=== PATIENT | male | born 1955 | race Caucasian/White ===

== ENCOUNTER → 2018-02-21 07:33 | Outpatient (CLI) | payer MEDICARE ==
[~2018-02-21] VITALS: Ht 170.2 cm; Wt 77.3 kg
--- NOTE | ~2018-02-21 | OP ---
PATIENT NAME: LAKSHMI BONILLA MEDICAL RECORD: [id number] :55 LOCATION:D.CAT ADMISSION DATE: SURGEON: JOSY LANDIS MD DATE OF OPERATION: 02/21/2018 PROCEDURES: 1. PTCA stent RCA. 2. Intravascular ultrasound. 3. Left heart catheterization. 4. Selective coronary angiography. 5. Left ventriculogram. INDICATION: Angina and coronary artery disease. PROCEDURE IN DETAIL: After informed consent was obtained and after a detailed description of risks, benefits as well as alternative therapies, the patient elected to proceed with angiogram and angioplasty. The right femoral area was prepped and draped in normal sterile fashion. The right femoral artery was cannulated via modified Seldinger technique with placement of 6-Georgian sheath. All catheters exchanged through this sheath. FINDINGS: The left ventriculogram was performed in standard 30-degree MCKENZIE view reveals preserved cardiac wall motion, ejection fraction is 60%. SELECTIVE CORONARY ANGIOGRAPHY: 1. Left main is with no significant angiographic disease. 2. Left anterior descending has a long area of greater than 70% stenosis proximally. 3. The left circumflex has moderate irregularities, but no flow-limiting stenosis. 4. The right coronary artery has multiple previously placed stents followed by a 75% stenosis distally. Intravascular ultrasound revealed there is no significant in-stent restenosis throughout the stented area. PTCA STENT OF THE RCA: The stent used was a 2.5 x 14 mm Integrity. Result was 0% residual stenosis. OVERALL IMPRESSION: Successful PTCA stent of the RCA going from 75% initial stenosis to 0% residual. PLAN: For STAMPING DIE MAKER BENCH stent of the LAD in the near future. TRANSINT:[id number] Voice Confirmation ID: [id number] DOCUMENT ID: [id number] JOSY LANDIS MD at 1710 CC: [id number] DICTATION DATE: 02/21/18 0944 BARNWORKER GROOM: 02/21/18 1039 DEP CLI 02/21/18 [id number] [place] [address]
--- NOTE | ~2018-02-21 | HEMODYNAMI ---
PATIENT:LAKSHMI BONILLA MEDICAL RECORD: [id number] : 55 LOCATION:[facility] ADMISSION DATE: 02/21/18 Generatedon:02/21/20189:47 Patient name: LAKSHMI BONILLA Patient #: [id number] SSN: : 1955 Date of study: 02/21/2018 Page: Of Hemodynamic Procedure Report Patient Data Patient Demographics Procedure consent was obtained First Name: LAKSHMI Gender: Male Last Name: CHAD : 1955 Patient #: [id number] Age: 62 year(s) Race: Unknown Additional ID: [id number] Contact details Address: [address] [place] [address] State: [place] City: [place] Zip code: [address] Past Medical History Allergies Allergen Reaction Date Comments Reported Other 02/21/2018 Plavix,Tape,Codeine,sulfa allergy Admission Admission Data Admission Date: 02/21/2018 Admission Time: 7:33 Lab Results Lab Result Date: 02/21/2018 Lab Result Time: 7:35 Biochemistry Name Units Result Min Max BUN mg/dl 19 --(----)*- 7 18 Creatinine mg/dl 1.2 --(---*)-- 0.6 1.3 CBC Name Units Result Min Max Hematocrit % 41.6 -*(----)-- 42 54 Hemoglobin g/dl 14.5 --(*---)-- 13.5 17.5 Procedure Procedure Types Cath Procedure Diagnostic Procedure LHC LHC w/Coronaries FFR/IVUS Intra-Coronary IVUS Initial PCI Procedure Coronary Stent Coronary Stent Initial Procedure Description Procedure Date Procedure Date: 02/21/2018 Procedure Start Time: 9:26 Procedure End Time: 9:45 Procedure Staff Name Function Art Adams MD Performing Physician Keagan Krause RT Monitor Monse Carroll RT Scrub Jer Bai RN Nurse Procedure Data Cath Procedure Fluoroscopy Diagnostic fluoroscopy Total fluoroscopy Time: 4.1 time: 4.1 min min Diagnostic fluoroscopy Total fluoroscopy dose: 587 dose: 587 mGy mGy Contrast Material Contrast Material Type Amount (ml) Isovue 370 60 Entry Location Entry Primary Successful Side Size Upsize Upsize Entry Closure Succes sful Closure Location (Fr) 1 (Fr) 2 (Fr) Remarks Device Remarks Femoral Right 5 Fr 6 Fr Exoseal artery Short Estimated blood loss: 10 ml Diagnostic catheters Device Type Used For End Catheter Placement MULTIPACK Pigtail 5 Fr Procedure catheter MULTIPACK JL 4.0 5Fr Procedure catheter MULTIPACK 3DRC 5Fr Procedure catheter DIAGNOSTIC 3DRC 5Fr Procedure catheter ([id number]) Procedure Complications No complications Procedure Medications Medication Administration Route Dosage Oxygen etCO2 Nasal cannula 2 l/min Heparin Flush Bag added to field 2 bags (1000units/500ml NS) 0.9% NaCl I.V. 100 ml/hr Fentanyl I.V. 50 mcg Versed I.V. 1 mg Fentanyl I.V. 50 mcg Versed I.V. 1 mg Heparin Bolus I.V. 4000 units Integrilin (Bolus I.V. 6.8 ml 2mg/ml) Integrilin (Bolus wasted 3.2 ml 2mg/ml) Effient P.O. 60 mg Hemodynamics Rest HGB: 14.5 (g/dl) Heart Rate: 56 (bpm) Snapshots Pre Cath Intra NCS Post Cath Vital Signs Time Heart Resp SPO2 etCO2 NIBP (mmHg) Rhythm Pain Sedation Rate (ipm) (%) (mmHg) Status Level (bpm) 8:51:59 60 17 95 0 123/75(92) NSR 0 (11) 10(A) , No pain 8:56:39 60 17 93 29.9 123/75(95) NSR 0 (11) 10(A) , No pain 9:01:20 62 16 91 37.5 124/71(94) NSR 0 (11) 10(A) , No pain 9:06:01 61 16 96 35.2 119/75(101) NSR 0 (11) 10(A) , No pain 9:10:41 61 16 98 35.2 120/64(94) NSR 0 (11) 10(A) , No pain 9:15:20 61 17 98 35.9 118/71(90) NSR 0 (11) 10(A) , No pain 9:19:58 61 16 98 34.5 125/72(87) NSR 0 (11) 10(A) , No pain 9:24:39 60 17 98 33 121/71(91) NSR 0 (11) 10(A) , No pain 9:29:18 62 16 95 32.9 118/71(92) NSR 0 (11) 9(A) , No pain 9:33:56 67 17 96 40.4 128/73(107) NSR 0 (11) 9(A) , No pain 9:38:39 65 16 96 0 130/67(101) NSR 0 (11) 9(A) , No pain 9:40:46 67 17 96 0 134/74(100) NSR 0 (11) 10(A) , No pain 9:45:26 66 9 96 12.7 116/75(103) NSR 0 (11) 10(A) , No pain Medications Time Medication Route Dose Verified Delivered Reason Notes Effectiveness by by 8:54:09 Oxygen etCO2 2 Art Randle Per physician Nasal l/min Angie Bai RN cannula 8:54:26 Heparin Flush added 2 Art Randle used for Bag to bags Angie Bai RN procedure (1000units/500ml field NS) 8:54:35 0.9% NaCl I.V. 100 Art Randle Per physician ml/hr Angie Bai RN 9:27:37 Fentanyl I.V. 50 Art Greenwoody for sedation mcg Angie Bai RN 9:27:43 Versed I.V. 1 mg Art Randle for sedation Angie Bai RN 9:33:26 Fentanyl I.V. 50 Art Randle for sedation mcg Angie Bai RN 9:33:32 Versed I.V. 1 mg Art Randle for sedation Angie Bai RN 9:33:40 Heparin Bolus I.V. 4000 Art Randle for units Angie Bai RN anticoagulation 9:33:50 Integrilin I.V. 6.8 Art Randle for (Bolus 2mg/ml) ml Angie Bai RN antiplatelet therapy 9:33:58 Integrilin wasted 3.2 Art Randle for (Bolus 2mg/ml) ml Angie Bai RN antiplatelet therapy 9:39:56 Effient P.O. 60 mg Art Bai RN antiplatelet therapy Procedure Log Time Note 8:35:41 Jer Bai RN sent for patient. Start room use. 8:47:06 Patient received from Pre/Post Procedure Room to CCL 1 Alert and oriented. Tansferred to table in Supine position. 8:47:08 Warm blankets applied, and lizette hugger turned on for patient comfort. 8:47:08 Correct patient and procedure confirmed by team. 8:47:09 Signed procedure consent form obtained from patient. 8:47:11 ECG and BP/O2 sat monitors applied to patient. 8:51:06 Vital chart was started 8:54:09 Oxygen 2 l/min etCO2 Nasal cannula was administered by Jer Bai RN; Per physician; 8:54:26 Heparin Flush Bag (1000units/500ml NS) 2 bags added to field was administered by Jer Bai RN; used for procedure; 8:54:35 0.9% NaCl 100 ml/hr I.V. was administered by Jer Bai RN; Per physician; 8:57:08 Baseline sample Acquired. 8:57:12 Rhythm: sinus rhythm 8:58:48 Full Disclosure recording started 8:59:01 H&P Date Dictated: 02/05/2018 Within 30 days and on chart., H&P Addendum completed by physician on day of procedure. (MUST COMPLETE FOR ALL OUTPATIENTS). 8:59:02 Pre-procedure instructions explained to patient. 8:59:02 Pre-op teaching completed and patient verbalized understanding. 8:59:05 Family in waiting room. 8:59:06 Patient NPO since Midnight. 8:59:26 Patient allergic to Other allergyPlavix,Tape,Codeine,sulfa 8:59:28 Is the patient allergic to Iodine/contrast media? No. 8:59:29 Is patient on blood thinner?No 8:59:30 Patient diabetic? No. 8:59:33 Previous problem with sedation/anesthesia? No ? 8:59:33 Snore? Yes 8:59:34 Sleep apnea? No 8:59:35 Deviated septum? No 8:59:36 Opens mouth fully? Yes 8:59:37 Sticks out tongue? Yes 8:59:38 Airway obstruction? No ? 8:59:40 Dentures? Yes out 8:59:46 Pre procedure: right dorsailis pedis pulse 2+ Normal; easily identifiable; not easily obliterated 8:59:48 Patient pain scale 0/10 ?. 8:59:56 IV patent on arrival in left forearm with 0.9% NaCl at [facility]. 9:01:13 Lab Result : BUN 19 mg/dl 9::13 Lab Result : Hemoglobin 14.5 g/dl 9::13 Lab Result : Creatinine 1.2 mg/dl 9::13 Lab Result : Hematocrit 41.6 % 9::15 Lab results completed and on chart. 9:01:18 Right groin area was prepped with chlora-prep and draped in sterile fashion 9::24 Alarms reviewed by R. N. 9::24 Sharps counted by scrub and verified by R.N. 9:01:33 Use device set Femoral Dx 9:01:34 ACIST Syringe (26756) opened to sterile field. 9:01:35 Bag Decanter (2002S) opened to sterile field. 9:01:36 Medline Cath Pack ([id number]) opened to sterile field. 9:01:46 ACIST Hand Control (34422) opened to sterile field. 9:01:46 ACIST Manifold (51834) opened to sterile field. 9:01:47 Tegaderm 4 x 4 (1626W) opened to sterile field. 9:01:51 DIAGNOSTIC WIRE .035 260cm J wire (571715) opened to sterile field. 9:01:52 DIAGNOSTIC Multipack 5Fr catheter set (WC5039) opened to sterile field. 9:01:53 SHEATH Prelude 5Fr 0.035 (WDK-4M-18-035) opened to sterile field. 9:13:05 Zero performed for pressure channel P1 9:24:43 Physician arrived 9:24:44 --------ALL STOP TIME OUT------ 9:24:45 Final Timeout: patient, procedure, and site verified with staff and physician. All members of the team are in agreement. 9:24:48 Right groin site verified by team. 9:24:51 Physical assessment completed. ASA score P 2 - A patient with mild systemic disease as per Art Adams MD. 9:24:54 Sedation plan: IV Moderate Sedation Medication:Versed, Fentanyl 9:26:22 Procedure started. 9::26 Local anesthetic to right femoral artery with Lidocaine 2% by Art Adams MD.INITIAL ACCESS ONLY 9:26:35 A 5 Fr sheath was inserted into the Right Femoral artery 9:27:37 Fentanyl 50 mcg I.V. was administered by Jer Bai RN; for sedation; 9:27:43 Versed 1 mg I.V. was administered by Jer Bai RN; for sedation; 9:28:04 A MULTIPACK Pigtail 5 Fr catheter was advanced over the wire and used for Procedure. 9:28:44 LV gram done using MCKENZIE 9::47 Injector settings: Ml/sec: 10, Volume: 20, 9:28:52 EF : 60 % 9:28:54 Catheter exchanged over wire. 9:29:02 A MULTIPACK JL 4.0 5Fr catheter was advanced over the wire and used for Procedure. 9:30:01 CHOICE PT Extra Support 182cm wire ([id number]) opened to sterile field. 9:30:02 INFLATOR Merit BasixCompak (UM6501) opened to sterile field. 9:30:02 SHEATH Prelude 6Fr 0.035 (ITR-1N-56-035) opened to sterile field. 9:30:16 LCA angiography performed. 9:30:18 Catheter exchanged over wire. 9:30:25 A MULTIPACK 3DRC 5Fr catheter was advanced over the wire and used for Procedure. 9:30:32 Catheter removed. damaged. 9:30:42 A DIAGNOSTIC 3DRC 5Fr catheter ([id number]) was advanced over the wire and used for Procedure. 9:30:48 RCA angiography performed. 9:31:39 Catheter removed. 9:31:45 Sheath upsized to a 6 Fr Short. 9:32:07 GUIDE 6FR AR 2.0 catheter ([id number]) opened to sterile field. 9:32:14 6 Fr ar 2 guide catheter was inserted over the wire 9:32:40 [place] Bois Forte Eagleye IVUS Catheter (33630K) opened to sterile field. 9:33:07 choice pt es wire advanced. 9:33:26 Fentanyl 50 mcg I.V. was administered by Jer Bai RN; for sedation; 9:33:31 IVUS catheter advanced over wire. 9:33:32 Versed 1 mg I.V. was administered by Jer Bai RN; for sedation; 9:33:34 IVUS pass to RCA lesion performed. 9:33:40 Heparin Bolus 4000 units I.V. was administered by Jer Bai RN; for anticoagulation; 9:33:43 IVUS catheter removed over wire. 9:33:50 Integrilin (Bolus 2mg/ml) 6.8 ml I.V. was administered by Jer Bia RN; for antiplatelet therapy; 9:33:58 Integrilin (Bolus 2mg/ml) 3.2 ml wasted was administered by Jer Bai RN; for antiplatelet therapy; 9:36:54 CHOICE PT Extra Support 182cm wire ([id number]) opened to sterile field. 9:37:07 choice extra support advance as sarina wire. 9:37:16 sarina wire removed. 9:37:22 Place stent Inflation Number: 1 A INTEGRITY RX 2.5 x 14 stent ([id number]) was prepped and advanced across the Dist RCA. The stent was deployed at 19 WILFRED for 0:10 (min:sec). 9:37:34 Inflation number: 2 The stent balloon was then re-inflated across the Dist RCA to 21 WILFRED for 0:10 (min:sec). 9:37:41 EXOSEAL 6Fr (EX600) opened to sterile field. 9:37:56 Inflation number: 3 The stent balloon was then re-inflated across the Dist RCA to 21 WILFRED for 0:10 (min:sec). 9:38:05 Stent catheter was removed intact over wire. 9:38:09 Wire removed. 9:38:09 Guide catheter removed. 9:38:25 Sheath removed intact; hemostasis achieved with Exoseal to the Right Femoral artery. 9:38:27 Procedure ended.(Physican Out) 9:39:54 Fluoroscopy time 04.10 minutes. 9:39:56 Effient 60 mg P.O. was administered by Jer Bai RN; for antiplatelet therapy; :40:21 Fluoroscopy dose: 587 mGy 9:40:21 Flurop Dose total: 587 9:40:27 Contrast amount:Isovue 370 60ml. 9:40:30 Sharps counted by scrub and verified by R.N. 9:40:32 Insertion/operative site no bleeding no hematoma. 9:40:34 Post-op/insertion site Right Femoral artery dressed using a 4 x 4 and Tegaderm. 9:40:37 Post right femoral artery:stable, soft, clean and dry 9:41:13 Post Procedure Pulses reassessed and unchanged 9:44:41 Post-procedure physical assessment completed. ASA score P 2 - A patient with mild systemic disease as per Art Adams MD. 9:44:43 Post procedure rhythm: unchanged. 9:44:46 Estimated blood loss: 10 ml 9:44:51 Post procedure instruction explained to patient.Patient verbalizes understanding. 9:44:53 Patient needs reinforcement of post procedure teaching. 9:45:13 Procedure type changed to Cath procedure, Diagnostic procedure, LHC, LHC w/Coronaries, FFR/IVUS, Intra-Coronary IVUS Initial, PCI procedure, Coronary Stent, Coronary Stent Initial 9:45:46 Procedure and supply charges have been captured, reviewed, submitted and are correct. 9:45:48 Procedure Complication : No complications 9:45:49 Vital chart was stopped 9:45:50 See physician's report for complete and final results. 9:45:51 Report given to Pre/Post Procedure Room. 9:45:54 Patient transfered to Pre/Post Procedure Room with Stretcher. 9:45:55 Procedure ended. 9:45:55 Full Disclosure recording stopped 9:45:59 End room use (Document Last) Intervention Summary Intervention Notes Time ActionType Lesion and Equipment Action# Pressure Duration Attributes Used 9:37:22 Place stent Dist RCA INTEGRITY RX 1 19 00:10 2.5 x 14 stent ([id number]) 9:37:34 Reinflate Dist RCA INTEGRITY RX 2 21 00:10 stent 2.5 x 14 balloon stent ([id number]) 9:37:56 Reinflate Dist RCA INTEGRITY RX 3 21 00:10 stent 2.5 x 14 balloon stent ([id number]) Device Usage Item Name Manufacture Quantity Catalog Number Hospital Part Current Minimal Lot# / Charge Number Stock Stock Serial# Code ACIST Syringe Acist 1 02762 [id number] 462368 [id number] 20 (33425) [employer] Bag Decanter Microtek 1 818905 29304 002784 5 () Medical Inc. Medline Cath Cardinal 1 [id number] 372442 70576 065094 5 Pack Health ([id number]) ACIST Hand Acist 1 37840 503716 583722 417384 5 Control (55234) Medical Systems Inc ACIST Manifold Acist 1 48736 003978 125739 895797 5 (90790) Medical Systems Inc Tegaderm 4 x 4 3M 1 1626W 402430 571118 263691 5 (1626W) DIAGNOSTIC WIRE St Alex 1 311335 261197 859427 414806 30 .035 260cm J wire (230805) DIAGNOSTIC Cardinal 1 SH7410 839575 73551 262708 30 Multipack 5Fr Health catheter set (CT3395) SHEATH Prelude Merit 1 VPD-9E-44-035 079557 645656 174277 5 5Fr 0.035 Medical (IAD-0C-82-035) MULTIPACK Cardinal 1 349097 5 Pigtail 5 Fr Health catheter MULTIPACK JL Cardinal 1 910479 5 4.0 5Fr Health catheter CHOICE PT Extra Maxbass 2 [id number] 553084 826799 588918 5 Support 182cm Scientific wire (8978318T8) INFLATOR Merit Merit 1 JN0257 267199 901087 092195 15 BasixComNextPoint Networksk Medical (BN9255) SHEATH Prelude Merit 1 RRY-6J-83-35 207702 5441345 809632 5 6Fr 0.035 Medical (SJX-3E-56-035) MULTIPACK 3DRC Cardinal 1 187395 5 5Fr catheter Health DIAGNOSTIC 3DRC Cardinal 1 [id number] 976171 051429 437325 9 5Fr catheter Health (486609Z) GUIDE 6FR AR Medtronic 1 IU2SD27 924099 71361 289373 1 2.0 catheter ([id number]) [place] 1 58056O 327913 699769 972506 8 Bois Forte Eagleye IVUS Catheter (37049S) INTEGRITY RX Medtronic 1 [id number] 987370 755873 303184 5 [id number] 2.5 x 14 stent ([id number]) EXOSEAL 6Fr Cardinal 1 EX600 545431 723365 511398 10 (EX600) Health Signature Audit Wrights Stage Time Signature Unsigned Intra-Procedure 02/21/2018 Keagan Krause 9:47:18 AM RT(R) Signatures Monitor : Keagan Krause RT Signature : Date : Time : [address] [place] [address]
[~2018-02-21 07:33] MED LIST: BAYER CHEWABLE81 MG PO; BRILINTA90 MG PO; CATAPRES0.2 MG PO; COREG25 MG PO; EFFIENT10 MG PO; PLAVIX75 MG PO; TRIGLIDE160 MG PO; ULTRAM50 MG PO; ZOCOR20 MG PO
[2018-02-21 07:41] VITALS: BP 126/70; Ht 170.2 cm; Wt 77.3 kg
[2018-02-21 07:43] LABS: BASOPHILS 0.3 % (0-2); EOSINOPHILS 2.2 % (0-7); HEMATOCRIT 41.6 % (42.0-54.0); HEMOGLOBIN 14.5 g/dL (13.5-17.5); IMMATURE GRANULOCYTES 0.7 % (0-5); LYMPHOCYTES 28.1 % (15-50); MCH 32.4 pg (26.0-34.0); MCHC 34.9 g/dL (31.0-37.0); MCV 92.9 fL (80.0-100.0); MEAN PLATELET VOLUME 9.2 fL (7.4-10.4); MONOCYTES 9.4 % (2-11); NEUTROPHILS 59.3 % (40-80); PLATELET COUNT 212 10x3/uL (130-400); RBC 4.48 10x6/uL (4.20-6.10); RDW 13.1 % (11.5-14.5)
[2018-02-21 07:59] LABS: ANION GAP 11.6 mmol/L (8-16); CALCIUM 9.3 mg/dL (8.5-10.1); CREATININE - SERUM 1.2 mg/dL (0.6-1.3); POTASSIUM - SERUM 3.6 mmol/L (3.5-5.1)
== END | disposition home or self-care (01) ==
LOC: D.CATH 07:33
PROVIDERS: Internal Medicine Interventional Cardiology
DX: I25.119 Atherosclerotic heart disease of native coronary artery with unspecified angina pectoris (principal); Z95.5 Presence of coronary angioplasty implant and graft; Z01.812 Encounter for preprocedural laboratory examination

== ENCOUNTER 2018-02-23 07:20 | Outpatient (CLI) | payer MEDICARE ==
[~2018-02-23] VITALS: Ht 170.2 cm; Wt 79.5 kg
--- NOTE | ~2018-02-23 | OP ---
PATIENT NAME: LAKSHMI BONILLA MEDICAL RECORD: [id number] :55 LOCATION:D.CAT ADMISSION DATE: SURGEON: JOSY LANDIS MD DATE OF OPERATION: 02/23/2018 PROCEDURES: 1. PTCA stent LAD. 2. Selective coronary angiography. INDICATION: Angina and coronary artery disease. PROCEDURE IN DETAIL: After informed consent was obtained and after a detailed description of the risks, benefits as well as alternative therapies, the patient elected to proceed with angiogram and angioplasty. The right femoral area was prepped and draped in normal sterile fashion. Right femoral artery was cannulated via modified Seldinger leg with placement of 6-Serbian sheath. All catheters exchanged through this sheath. FINDINGS: The left anterior descending has long areas of greater than 70% stenosis proximally. This was addressed with a 3.5 x 26 and 3.0 x 26, both Integrity stents. Result was 0% residual stenosis. OVERALL IMPRESSION: Successful percutaneous transluminal angioplasty stent of the left anterior descending going from greater than 70% initial stenosis to 0% residual. TRANSINT:[id number] Voice Confirmation ID: [id number] DOCUMENT ID: [id number] JOSY LANDIS MD at 1713 CC: [id number] DICTATION DATE: 02/23/18 1036 BURRITO MAKER: 02/23/18 1134 DEP CLI 02/23/[address] [address]
--- NOTE | ~2018-02-23 | HEMODYNAMI ---
PATIENT:LAKSHMI BONILLA MEDICAL RECORD: [id number] : 55 LOCATION:[facility] ADMISSION DATE: 02/23/18 Generatedon:02/23/201810:39 Patient name: LAKSHMI BONILLA Patient #: [id number] SSN: : 1955 Date of study: 02/23/2018 Page: Of Hemodynamic Procedure Report Patient Data Patient Demographics Procedure consent was obtained First Name: LAKSHMI Gender: Male Last Name: CHAD : 1955 Patient #: [id number] Age: 62 year(s) Race: Unknown Additional ID: [id number] Contact details [address]: [address] [place] [address] State: [place] City: [place] Zip code: [address] Past Medical History Allergies Allergen Reaction Date Comments Reported Other 02/21/2018 Plavix,Tape,Codeine,sulfa allergy Admission Admission Data Admission Date: 02/23/2018 Admission Time: 7:20 Lab Results Lab Result Date: 02/21/2018 Lab Result Time: 7:35 Biochemistry Name Units Result Min Max BUN mg/dl 19 --(----)*- 7 18 Creatinine mg/dl 1.2 --(---*)-- 0.6 1.3 CBC Name Units Result Min Max Hematocrit % 41.6 -*(----)-- 42 54 Hemoglobin g/dl 14.5 --(*---)-- 13.5 17.5 Procedure Procedure Types Cath Procedure PCI Procedure Coronary Stent Coronary Stent Initial Procedure Description Procedure Date Procedure Date: 02/23/2018 Procedure Start Time: 10:23 Procedure End Time: 10:36 Procedure Staff Name Function Art Adams MD Performing Physician Monse Carroll RT Monitor Keagan Krause RT Scrub Jer Bai RN Nurse Andrew Hickey RT Director [employer] Procedure Data Cath Procedure Fluoroscopy Diagnostic fluoroscopy Total fluoroscopy Time: 3.6 time: 3.6 min min Diagnostic fluoroscopy Total fluoroscopy dose: 410 dose: 410 mGy mGy Contrast Material Contrast Material Type Amount (ml) Isovue 370 53 Entry Location Entry Primary Successful Side Size Upsize Upsize Entry Closure Succes sful Closure Location (Fr) 1 (Fr) 2 (Fr) Remarks Device Remarks Femoral Right 6 Fr Exoseal artery Short Estimated blood loss: 10 ml Procedure Complications No complications Procedure Medications Medication Administration Route Dosage Oxygen etCO2 Nasal cannula 2 l/min Heparin Flush Bag added to field 2 bags (1000units/500ml NS) 0.9% NaCl I.V. 100 ml/hr Fentanyl I.V. 50 mcg Versed I.V. 1 mg Heparin Bolus I.V. 4000 units Fentanyl I.V. 50 mcg Versed I.V. 1 mg Hemodynamics Rest HGB: 14.5 (g/dl) Heart Rate: 21 (bpm) Snapshots Pre Cath Intra NCS Post Cath Vital Signs Time Heart Resp SPO2 etCO2 NIBP (mmHg) Rhythm Pain Sedation Rate (ipm) (%) (mmHg) Status Level (bpm) 9:37:59 55 19 95 0 135/77(95) NSR 0 (11) 10(A) , No pain 9:42:44 59 17 97 30.6 135/75(96) NSR 0 (11) 10(A) , No pain 9:47:25 61 16 95 32.8 118/70(89) NSR 0 (11) 10(A) , No pain 9:52:54 63 16 96 32.8 119/73(103) NSR 0 (11) 10(A) , No pain 9:57:33 59 16 96 34.3 124/70(85) NSR 0 (11) 10(A) , No pain 10:02:16 62 18 97 34.3 123/61(91) NSR 0 (11) 10(A) , No pain 10:06:56 60 17 96 33.5 114/71(102) NSR 0 (11) 10(A) , No pain 10:11:35 61 17 96 33.6 124/66(90) NSR 0 (11) 10(A) , No pain 10:16:13 60 16 96 23.1 115/70(92) NSR 0 (11) 10(A) , No pain 10:20:50 60 16 97 33.5 125/72(87) NSR 0 (11) 10(A) , No pain 10:25:30 64 16 96 0 106/68(96) NSR 0 (11) 9(A) , No pain 10:31:37 66 17 95 0 112/71(101) NSR 0 (11) 9(A) , No pain 10:35:12 62 16 96 0 121/75(106) NSR 0 (11) 9(A) , No pain Medications Time Medication Route Dose Verified Delivered Reason Notes Effectiveness by by 9:40:12 Oxygen etCO2 2 Art Jer Per physician Nasal l/min Angie Bai RN cannula 9:40:19 Heparin Flush added 2 Art Greenwoody used for Bag to bags Angie Bai RN procedure (1000units/500ml field NS) 9:40:28 0.9% NaCl I.V. 100 Art Greenwoody Per physician ml/hr Angie Bai RN 10:21:23 Fentanyl I.V. 50 Art Greenwoody for sedation mcg Angie Bai RN 10:21:27 Versed I.V. 1 mg Art Greenwoody for sedation Angie Bai RN 10:24:56 Fentanyl I.V. 50 Art Jer for sedation mcg Angie Bai RN 10:25:02 Versed I.V. 1 mg Art Greenwoody for sedation nAgie Bai RN 10:25:13 Heparin Bolus I.V. 4000 Art Jer for units Angie Bai RN anticoagulation Procedure Log Time Note 9:20:00 Andrew Hickey RT(R) sent for patient. Start room use. 9:31:59 Time tracking: Regular hours (M-F 7:00 - 5:00) 9:32:04 Plan of Care:Hemodynamics will remain stable., Cardiac rhythm will remain stable., Comfort level will be maintained., Respiratory function will remain adequate., Patient/ family verbilizes understanding of procedure., Procedure tolerated without complication., Recovers from procedure without complications.. 9:32:05 Signed procedure consent form obtained from patient. 9:32:18 Patient received from Pre/Post Procedure Room to CCL 1 Alert and oriented. Tansferred to table in Supine position. 9:32:19 Warm blankets applied, and lizette hugger turned on for patient comfort. 9:32:20 Correct patient and procedure confirmed by team. 9:32:21 ECG and BP/O2 sat monitors applied to patient. 9:36:59 Baseline sample Acquired. 9:36:59 Vital chart was started 9:37:24 Rhythm: sinus rhythm 9:37:25 Full Disclosure recording started 9:37:41 H&P Date Dictated: 02/23/2018 New H&P dictated by physician.. 9:37:42 Pre-procedure instructions explained to patient. 9:37:43 Pre-op teaching completed and patient verbalized understanding. 9:37:49 Family in patients room. 9:37:51 Patient NPO since Midnight. 9:38:03 Is the patient allergic to Iodine/contrast media? No. 9:38:05 Is patient on blood thinner?Yes 9:38:07 ACC The patient was administered the following blood thiners within the last 24 hours: ACCPlavix 9:38:08 Patient diabetic? No. 9:38:10 Previous problem with sedation/anesthesia? No ? 9:38:11 Snore? No 9:38:12 Sleep apnea? No 9:38:15 Deviated septum? No 9:38:15 Opens mouth fully? Yes 9:38:16 Sticks out tongue? Yes 9:38:18 Airway obstruction? No ? 9:38:21 Dentures? Yes OUT 9:38:27 Pre procedure: right dorsailis pedis pulse 1+ Palpable, but thready & weak; easily obliterated 9:38:30 Patient pain scale 0/10 ?. 9:38:36 IV patent on arrival in left forearm with 0.9% NaCl at O. 9:38:38 Lab results completed and on chart. 9:38:41 Right groin area was prepped with chlora-prep and draped in sterile fashion 9:38:42 Alarms reviewed by R. N. 9:38:43 Sharps counted by scrub and verified by R.N. 9:39:56 Baseline sample Acquired. 9:40:12 Oxygen 2 l/min etCO2 Nasal cannula was administered by Jer Bai RN; Per physician; 9:40:19 Heparin Flush Bag (1000units/500ml NS) 2 bags added to field was administered by Jer Bai RN; used for procedure; 9:40:28 0.9% NaCl 100 ml/hr I.V. was administered by Jer Bai RN; Per physician; 10::09 --------ALL STOP TIME OUT------ 10:21:10 Final Timeout: patient, procedure, and site verified with staff and physician. All members of the team are in agreement. 10:21:15 Right groin site verified by team. 10:21:19 Physical assessment completed. ASA score P 2 - A patient with mild systemic disease as per Art Adams MD. 10::23 Fentanyl 50 mcg I.V. was administered by Jer Bai RN; for sedation; 10::23 Sedation plan: IV Moderate Sedation Medication:Versed, Fentanyl 10::27 Versed 1 mg I.V. was administered by Jer Bai RN; for sedation; 10:22:16 Use device set CATH PACK 10:22:17 ACIST Syringe (83679) opened to sterile field. 10:22:18 ACIST Hand Control (70643) opened to sterile field. 10:22:18 ACIST Manifold (09684) opened to sterile field. 10:22:19 Medline Cath Pack ([id number]) opened to sterile field. 10:22:19 Bag Decanter (2002S) opened to sterile field. 10:22:19 DIAGNOSTIC WIRE .035 260cm J wire (191728) opened to sterile field. 10:22:31 SHEATH 6FR [place] (IAX135) opened to sterile field. 10:22:32 INFLATOR Merit BasixCompak (TS2175) opened to sterile field. 10:22:32 CHOICE PT Extra Support 182cm wire ([id number]) opened to sterile field. 10:23:51 Procedure started. 10:23:57 Local anesthetic to right femoral artery with Lidocaine 2% by Art Adams MD.INITIAL ACCESS ONLY 10:24:04 A 6 Fr Short sheath was inserted into the Right Femoral artery 10:24:20 GUIDE 6FR XBLAD 3.5 catheter ([id number]) opened to sterile field. 10:24:38 6 Fr xblad 3.5 guide catheter was inserted over the wire 10:24:56 Fentanyl 50 mcg I.V. was administered by Jer Bai RN; for sedation; 10:25:02 Versed 1 mg I.V. was administered by Jer Bai RN; for sedation; 10:25:09 CHOICE ES 182 wire advanced. 10:25:13 Heparin Bolus 4000 units I.V. was administered by Jer Bai RN; for anticoagulation; 10:26:12 Wire advanced across lesion. 10:27:24 Place stent Inflation Number: 1 A INTEGRITY RX 3.5 x 26 stent ([id number]) was prepped and advanced across the Prox LAD. The stent was deployed at 21 WILFRED for 0:10 (min:sec). 10:28:20 Stent catheter was removed intact over wire. 10:29:53 Inflate balloon Inflation number: 2 A EUPHORA 3.0 x 15 Balloon ([id number]) was prepped and advanced across the Prox LAD, then inflated to 9 WILFRED for 0:10 (min:sec). 10:29:59 Balloon removed over the wire. 10:32:13 Place stent Inflation Number: 1 A INTEGRITY RX 3.0 x 26 stent ([id number]) was prepped and advanced across the Mid LAD. The stent was deployed at 17 WILFERD for 0:10 (min:sec). 10:32:27 Inflation number: 2 The stent balloon was then re-inflated across the Mid LAD to 13 WILFRED for 0:10 (min:sec). 10:32:46 Stent catheter was removed intact over wire. 10:32:51 Wire removed. 10:32:52 Guide catheter removed. 10:33:19 EXOSEAL 6Fr (EX600) opened to sterile field. 10:33:29 Sheath removed intact; hemostasis achieved with Exoseal to the Right Femoral artery. 10:33:31 Procedure ended.(Physican Out) 10:34:35 Fluoroscopy time 03.60 minutes. 10:34:40 Flurop Dose total: 410 10:34:40 Fluoroscopy dose: 410 mGy 10:34:46 Contrast amount:Isovue 370 53ml. 10:34:47 Sharps counted by scrub and verified by R.N. 10:35:02 Post-op/insertion site Right Femoral artery dressed using a 4 x 4 and Tegaderm. 10:35:06 Post right femoral artery:stable, soft, clean and dry 10:35:08 Post-procedure physical assessment completed. ASA score P 2 - A patient with mild systemic disease as per Art Adams MD. 10:35:12 Post procedure rhythm: sinus bradycardia 10:35:15 Estimated blood loss: 10 ml 10:35:16 Post procedure instruction explained to patient.Patient verbalizes understanding. 10:35:17 Patient needs reinforcement of post procedure teaching. 10:35:51 Procedure and supply charges have been captured, reviewed, submitted and are correct. 10:35:53 Procedure Complication : No complications 10:35:55 Vital chart was stopped 10:35:55 See physician's report for complete and final results. 10:35:56 Report given to Pre/Post Procedure Room. 10:35:59 Patient transfered to Pre/Post Procedure Room with Bed. 10:36:01 Procedure ended. 10:36:01 Full Disclosure recording stopped 10:36:03 End room use (Document Last) Intervention Summary Intervention Notes Time ActionType Lesion and Equipment Action# Pressure Duration Attributes Used 10:27:24 Place stent Prox LAD INTEGRITY RX 1 21 00:10 3.5 x 26 stent ([id number]) 10:29:53 Inflate Prox LAD EUPHORA 3.0 2 9 00:10 balloon x 15 Balloon ([id number]) 10:32:13 Place stent Mid LAD INTEGRITY RX 1 17 00:10 3.0 x 26 stent ([id number]) 10:32:27 Reinflate Mid LAD INTEGRITY RX 2 13 00:10 stent 3.0 x 26 balloon stent ([id number]) Device Usage Item Name Manufacture Quantity Catalog Number Hospital Part Current Mini [facility] Lot# / Charge Number Stock Stock Serial# Code ACIST Acist 1 94035 586175 879577 468901 20 Syringe Medical (74012) Systems Inc ACIST Hand Acist 1 65395 314243 595856 550001 5 Control Medical (64330) Systems Inc ACIST Acist 1 04813 233113 668208 535842 5 Manifold Medical (17926) Systems Inc Medline Cath Cardinal 1 [id number] 015205 69806 270407 5 Pack Health ([id number]) Bag Decanter Microtek 1 824936 56838 193907 5 () Medical Inc. DIAGNOSTIC [facility] [place] 1 557458 780608 117037 011419 30 WIRE .035 260cm J wire (802385) SHEATH 6FR Terumo 1 POP773 600380 889818 837827 40 [place] (RRY514) INFLATOR Merit 1 LU8182 868878 120962 106766 15 [facility] BasixCompak (NV3045) CHOICE PT [place] 1 [id number] 626803 452179 641429 5 Extra Scientific Support 182cm wire ([id number]) GUIDE 6FR Cardinal 1 [id number] 471432 470902 389711 10 XBLAD 3.5 Health catheter (40083285) INTEGRITY RX Medtronic 1 [id number] 785117 682528 332043 5 [id number] 3.5 x 26 stent ([id number]) EUPHORA 3.0 Medtronic 1 [id number] 301863 066079 008647 5 [id number] x 15 Balloon ([id number]) INTEGRITY RX Medtronic 1 [id number] 415403 937023 640188 5 [id number] 3.0 x 26 stent ([id number]) EXOSEAL 6Fr Cardinal 1 EX600 405755 742545 470934 10 (EX600) Health Signature Audit [place] Stage Time Signature Unsigned Intra-Procedure 02/23/2018 Monse Carroll 10:39:14 AM RT(R) Signatures Monitor : Monse Carroll Signature : RT Date : Time : [place] [id number] [place] [address]
--- NOTE | ~2018-02-23 | HP ---
PATIENT: LAKSHMI BONILLA MEDICAL RECORD: [id number] ACCOUNT: [id number] LOCATION:[facility] : 55 ADMISSION DATE: 02/23/18 HISTORY AND PHYSICAL EXAMINATION ADMITTING DIAGNOSES: 1. Angina. 2. Coronary artery disease. 3. Recent percutaneous transluminal coronary angioplasty stent to the right coronary artery with significant disease to the left anterior descending. HISTORY OF PRESENT ILLNESS: Mr. Bonilla presents with unstable anginal symptomatology, found to have significant disease to the RCA and LAD, underwent successful PTCA stent of the RCA. He is now brought back for PTCA and stent of the LAD in a staged fashion. REVIEW OF SYSTEMS: The patient reports easy bruising but reports no swollen glands. The patient reports no fever, no night sweats, no significant weight gain, no significant weight loss. No significant exercise tolerance. The patient reports no dry eyes, no irritation, no vision change. Patient reports no difficulty hearing and no ear pain. Patient reports no frequent nose bleeds or nose and sinus problems. Patient reports on arm pain on exertion. No shortness of breath while lying down. No history of heart murmur. Patient reports no cough, no wheezing or coughing up blood. Patient reports no abdominal pain, no vomiting. Normal appetite. No diarrhea and not vomiting blood. No nausea and no constipation. Patient reports no incontinence. No difficulty urinating. No hematuria. No increased frequency. Patient reports no muscle aches. No weakness, no arthralgias, no back pain. No swelling of the extremities. Patient reports no abnormal mole, no jaundice, no rashes. Reports no loss of consciousness. No weakness and no numbness. No seizures, dizziness, or headaches. The patient reports no depression, no sleep disturbance, feeling safe in a relationship and no alcohol abuse. Patient reports on fatigue. Reports no runny nose or sinus pressure. No itching, no hives, and no frequent sneezing. PHYSICAL EXAMINATION: GENERAL APPEARANCE: Well-nourished, well-developed, appears stated age. Level of distress, comfortable. PSYCHIATRIC: Mental status, alert, normal affect. Orientation, oriented to time, place and person. EYES: Lids and conjunctiva, noninjected. No discharge, no pallor. ENT: Lips, teeth, gums, normal dentition. Oropharynx, no cyanosis, no pallor. NECK: Carotid arteries, bilateral normal upstroke, no bruits, no thrills. JUGULAR VEINS: No jugular venous pressure or distention. CERVICAL LYMPH NODES: Nontender, nonenlarged. THYROID: Not enlarged. Nontender. No nodules. LUNGS: Respiratory effort, unlabored. CHEST: Normal curvature. No thoracic deformity. No chest wall tenderness. Percussion, resonant. Auscultation, clear. No wheezes, no rales, no rhonchi. CARDIOVASCULAR: Precordial exam, nondisplaced. No heaves or pericardial thrills. Rate and rhythm, regular. Heart sounds, normal S1, normal S2. No S3, no gallop, no rub. Systolic murmur, not heard. Diastolic murmur, not heard. EXTREMITIES: No cyanosis, no edema. Peripheral pulses, full and equal in all extremities, except as noted. No bruits appreciated. ABDOMEN: Soft, nondistended. Normal aorta. No bruit. Nontender. No masses. HISTORY AND PHYSICAL [id number] GREENLAKSHMI Liver, nontender, no hepatomegaly. Spleen, nontender, no splenomegaly. MUSCULOSKELETAL: No joint tenderness. No joint swelling. No erythema. NEUROLOGICAL: Normal gait, normal strength, normal tone. SKIN: Warm and dry. OVERALL IMPRESSION: Anginal symptomatology with significant disease of the left anterior descending. We will proceed with percutaneous transluminal coronary angioplasty and stent of the LAD. TRANSINT:[id number] Voice Confirmation ID: [id number] DOCUMENT ID: [id number] JOSY LANDIS MD at 1016 CC: [id number] DICTATION DATE: 02/23/18932 OBJECTS CONSERVATOR: 02/23/18940 [facility] [address] [place] [address]
[~2018-02-23 07:20] MED LIST changes: -BAYER CHEWABLE81 MG PO
[2018-02-23 07:37] VITALS: BP 127/83; Ht 170.2 cm; Wt 79.5 kg
[2018-02-23 07:58] LABS: BASOPHILS 0.6 % (0-2); EOSINOPHILS 2.1 % (0-7); HEMATOCRIT 42.1 % (42.0-54.0); HEMOGLOBIN 14.8 g/dL (13.5-17.5); IMMATURE GRANULOCYTES 0.8 % (0-5); LYMPHOCYTES 27.5 % (15-50); MCH 32.8 pg (26.0-34.0); MCHC 35.2 g/dL (31.0-37.0); MCV 93.3 fL (80.0-100.0); MEAN PLATELET VOLUME 9.2 fL (7.4-10.4); MONOCYTES 10.8 % (2-11); NEUTROPHILS 58.2 % (40-80); PLATELET COUNT 205 10x3/uL (130-400); RBC 4.51 10x6/uL (4.20-6.10); RDW 13.2 % (11.5-14.5); WBC 6.2 10x3/uL (4.8-10.8)
[2018-02-23 08:03] LABS: ANION GAP 14.7 mmol/L (8-16); CALCIUM 9.6 mg/dL (8.5-10.1); CARBON DIOXIDE 24.9 mmol/L (21.0-32.0); CREATININE - SERUM 1.2 mg/dL (0.6-1.3); POTASSIUM - SERUM 3.6 mmol/L (3.5-5.1)
[2018-02-23] MEDS ORDERED: BAYER CHEWABLE81 MG PO (10:59)
== END 2018-02-23 14:10 | disposition home or self-care (01) ==
LOC: D.CATH 07:20
PROVIDERS: Internal Medicine Interventional Cardiology
DX: I25.119 Atherosclerotic heart disease of native coronary artery with unspecified angina pectoris (principal); Z95.5 Presence of coronary angioplasty implant and graft; Z01.812 Encounter for preprocedural laboratory examination

== ENCOUNTER → 2019-04-23 08:36 | Outpatient (CLI) | payer MEDICARE ==
[2018-02-23 07:37] VITALS: BMI 27.4
[~2019-04-23 08:36] MED LIST changes: +BAYER CHEWABLE81 MG PO
--- NOTE | 2019-04-30 11:09 | ST ---
PATIENT:LAKSHMI BONILLA MEDICAL RECORD: [id number] SEX: M LOCATION:[facility] ORDER #: ADMISSION DATE: 04/23/19 AGE OF PATIENT: 64 REFERRING PHYSICIAN: INTERPRETING PHYSICIAN: JOSY LANDIS MD DATE OF SERVICE: 04/23/2019 PROCEDURE: Nuclear stress test. INDICATION: Angina, coronary artery disease, shortness of breath, hypertension, hyperlipidemia. TECHNIQUE: She was exercised on standard Lexiscan protocol with 32 mCi of sestamibi injected at peak stress, 11 mCi used previously for rest images. FINDINGS: Gated SPECT reveals preserved ejection fraction at 64% with good wall motioning and thickening and brightening throughout all segments. SPECT imaging Cardiolite was used as myocardial perfusion agent. There is a large amount of myocardium involved with reversibility inferiorly and laterally, this includes the basal, mid, apical, inferior segments as well as apical lateral, mid lateral, and basal lateral segments. The degree of reversibility is moderate. The amount of myocardial involved is large. OVERALL IMPRESSION: This is a high risk nuclear stress test with a large amount of myocardium involved with reversibility inferiorly and laterally suggestive of multivessel coronary artery disease. TRANSINT:[id number] Voice Confirmation ID: [id number] DOCUMENT ID: [id number] JOSY LANDIS MD at 1109 CC: KAYLA CARREON MD [id number] DICTATION DATE: 04/23/19 1633 [facility] [employer] ARCHITECT: 04/23/19 2258 DEP CLI 04/23/19 [place] [id number] [place] [id number]
== END | disposition home or self-care (01) ==
LOC: D.HCCARDIO 08:36
PROVIDERS: ATTEND Internal Medicine Interventional Cardiology
DX: I25.119 Atherosclerotic heart disease of native coronary artery with unspecified angina pectoris (principal)

== ENCOUNTER 2019-04-26 08:02 | Outpatient (CLI) | payer MEDICARE ==
[~2019-04-26] VITALS: Ht 170.2 cm; Wt 82.7 kg
--- NOTE | ~2019-04-26 | HEMODYNAMI ---
PATIENT:LAKSHMI BONILLA MEDICAL RECORD: [id number] : 55 LOCATION:[facility] ADMISSION DATE: 04/26/19 Generatedon:04/26/201911:30 Patient name: LAKSHMI BONILLA Patient #: [id number] SSN: [id number] : 1955 Date of study: 04/26/2019 Page: Of Hemodynamic Procedure Report Patient Data Patient Demographics Procedure consent was obtained First Name: LAKSHMI Gender: Male Last Name: CHAD : 1955 Patient #: [id number] Age: 64 year(s) Race: SSN: [id number] Additional ID: [id number] Contact details Address: [address] [place] [address] lane State: [place] City: [place] Zip code: [address] Past Medical History Allergies Allergen Reaction Date Comments Reported Other 02/21/2018 Plavix,Tape,Codeine,sulfa allergy Other 04/26/2019 ADHESIVE TAPE, CODEINE, allergy SULFA Admission Admission Data Admission Date: 04/26/2019 Admission Time: 8:02 Arrival Date: 04/26/2019 Arrival Time: 0:00 [facility] #: [id number] Height (in.): 66.93 BSA: 1.95 (m2) Height (cm.): 170 BMI: 28.72 (kg/m2) Weight (lbs.): 182.98 Weight (kg.): 83 Lab Results Lab Result Date: 04/26/2019 Lab Result Time: 0:00 Biochemistry Name Units Result Min Max BUN mg/dl 16 --(---*)-- 7 18 Creatinine mg/dl 1.1 --(--*-)-- 0.6 1.3 eGFR ml/min 70.96893 *-(----)-- 90 120 NONAFRICAN CBC Name Units Result Min Max Hematocrit % 38.8 *-(----)-- 42 54 Hemoglobin g/dl 13.8 --(*---)-- 13.5 17.5 Procedure Procedure Types Cath Procedure Diagnostic Procedure [facility] w/Coronaries FFR/IVUS FFR Initial FFR Additional Sedation Charges Moderate Sedation up to 15 minutes PCI Procedure Coronary Stent Coronary Stent Initial x2 Procedure Description Procedure Date Procedure Date: 04/26/2019 Procedure Start Time: 10:40 Procedure End Time: 11:28 Procedure Staff Name Function Art Adams MD Performing Physician Monse Carroll RT Monitor Evelina Cox RT Scrub Jae Florence RN Nurse Andrew Hickey RT Scrub Procedure Data Cath Procedure Fluoroscopy Diagnostic fluoroscopy Total fluoroscopy Time: time: 13.2 min 13.2 min Diagnostic fluoroscopy Total fluoroscopy dose: dose: 1334 mGy 1334 mGy Contrast Material Contrast Material Type Amount (ml) Isovue 300 160 Entry Location Entry Primary Successful Side Size Upsize Upsize Entry Closure Succes sful Closure Location (Fr) 1 (Fr) 2 (Fr) Remarks Device Remarks Femoral Right 5 Fr 6 Fr 7 Fr Exoseal artery Short Short Estimated blood loss: 10 ml Diagnostic catheters Device Type Used For End Catheter Placement MULTIPACK Pigtail 5 Fr Procedure catheter MULTIPACK JL 4.0 5Fr Procedure catheter MULTIPACK 3DRC 5Fr Procedure catheter Procedure Complications No complications Procedure Medications Medication Administration Route Dosage Oxygen etCO2 Nasal cannula 2 l/min Lidocaine 2% added to field 20 Heparin Flush Bag added to field 2 bags (1000units/500ml NS) 0.9% NaCl I.V. 100 ml/hr Versed I.V. 2 mg Fentanyl I.V. 100 mcg Heparin Bolus I.V. 4000 units Integrilin (Bolus I.V. 7.3 ml 2mg/ml) Versed I.V. 2 mg Fentanyl I.V. 100 mcg Versed I.V. 1 mg Heparin Bolus I.V. 3000 units Versed I.V. 1 mg Plavix P.O. 600 mg Hemodynamics Rest BSA: 1.95 (m2) HGB: 13.8 (g/dl) O2 Consumption: Estimated: 222.21 (ml/min) O2 Co nsumption indexed: Estimated:113.95 (ml/min/m) Heart Rate: 63 (bpm) Snapshots Pre Cath Intra NCS Post Cath Vital Signs Time Heart Resp SPO2 etCO2 NIBP (mmHg) Rhythm Pain Sedation Rate (ipm) (%) (mmHg) Status Level (bpm) 9:41:24 61 15 96 0 139/79(115) NSR 0 (11) 10(A) , No pain 9:45:40 66 14 92 39 132/85(111) NSR 0 (11) 10(A) , No pain 9:49:58 64 16 94 40.4 131/76(99) NSR 0 (11) 10(A) , No pain 9:54:10 62 14 94 44.2 123/80(112) NSR 0 (11) 10(A) , No pain 9:58:28 71 15 98 39.7 134/68(109) NSR 0 (11) 10(A) , No pain 10:02:40 64 14 96 40.4 122/74(107) NSR 0 (11) 10(A) , No pain 10:06:56 64 17 96 40.4 121/68(90) NSR 0 (11) 10(A) , No pain 10:11:08 64 18 96 40.5 119/72(93) NSR 0 (11) 10(A) , No pain 10:15:22 65 15 97 39.7 113/69(92) NSR 0 (11) 10(A) , No pain 10:19:32 64 14 96 39 116/72(94) NSR 0 (11) 10(A) , No pain 10:23:46 63 15 95 34.5 105/68(94) NSR 0 (11) 10(A) , No pain 10:27:52 69 15 97 0 116/80(105) NSR 0 (11) 10(A) , No pain 10:32:02 64 17 96 44.2 109/68(89) NSR 0 (11) 10(A) , No pain 10:36:14 64 16 97 44.2 113/65(88) NSR 0 (11) 10(A) , No pain 10:40:24 64 16 97 42.7 111/68(95) NSR 0 (11) 10(A) , No pain 10:45:20 71 15 96 43.4 113/75(86) NSR 0 (11) 9(A) , No pain 10:49:32 68 15 96 45.7 104/66(92) NSR 0 (11) 9(A) , No pain 10:53:42 66 14 96 45.7 109/64(87) NSR 0 (11) 9(A) , No pain 10:57:56 66 16 97 44.9 108/60(85) NSR 0 (11) 9(A) , No pain 11:02:08 67 17 97 45 110/65(84) NSR 0 (11) 9(A) , No pain 11:07:03 68 18 96 45 108/62(87) NSR 0 (11) 9(A) , No pain 11:11:11 66 18 97 43.5 105/64(85) NSR 0 (11) 9(A) , No pain 11:16:08 68 15 97 29.2 126/71(101) NSR 0 (11) 9(A) , No pain 11:20:24 66 16 96 45.7 118/68(83) NSR 0 (11) 9(A) , No pain 11:24:38 64 16 96 45.7 126/70(103) NSR 0 (11) 10(A) , No pain Medications Time Medication Route Dose Verified Delivered Reason Notes Effectiveness by by 9:49:51 Oxygen etCO2 2 Art Rowe used for Nasal l/min Angie Florence RN procedure cannula 9:49:58 Lidocaine 2% added 20ml Art Cordova for local to vial Angie Adams MD anesthetic field 9:50:03 Heparin Flush added 2 Art Art used for Bag to bags Angie Adams MD procedure (1000units/500ml field NS) 9:50:14 0.9% NaCl I.V. 100 Art Rowe Per physician ml/hr Angie Florence RN 10:40:47 Versed I.V. 2 mg Art Gibbsie for sedation Angie Florence RN 10:40:52 Fentanyl I.V. 100 Art Gibbsie for sedation mcg Angie Florence RN 10:46:28 Heparin Bolus I.V. 4000 Art Rowe for verif ied units Angie Florence RN anticoagulation with dr adams 10:47:44 Integrilin I.V. 7.3 Art Gibbsie for waste d (Bolus 2mg/ml) ml Angie Florence RN antiplatelet 2.7 ml therapy of vial 10:47:51 Versed I.V. 2 mg Art Gibbsie for sedation Angie Florence RN 10:47:54 Fentanyl I.V. 100 Art Rowe for sedation mcg Angie Florence RN 10:59:16 Versed I.V. 1 mg Art Rowe for sedation Angie Florence RN 11:14:40 Heparin Bolus I.V. 3000 Art Rowe for verif ied units Angie Florence RN anticoagulation with dr adams 11:16:05 Versed I.V. 1 mg Art Rowe for sedation Angie Florence RN 11:24:19 Plavix P.O. 600 Art Rowe for mg Angie Florence RN antiplatelet therapy Procedure Log Time Note 9:29:46 Informed consent obtained and on chart 9:30:16 Jae Florence RN sent for patient. Start room use. 9:30:20 Procedure Status Elective Heart Cath (OP). 9:30:21 Time tracking: Regular hours (M-F 7:00 - 5:00) 9:30:25 Plan of Care:Hemodynamics will remain stable., Cardiac rhythm will remain stable., Comfort level will be maintained., Respiratory function will remain adequate., Patient/ family verbilizes understanding of procedure., Procedure tolerated without complication., Recovers from procedure without complications.. 9:30:55 Patient allergic to Other allergyADHESIVE TAPE, CODEINE, SULFA 9:31:33 Patient Weight : 182.98 lbs 9:32:00 Patient Height : 66.93 inches 9:32:08 Arrival Date: 04/26/2019 12:00:00 AM 9:33:01 Lab Result : Creatinine 1.1 mg/dl 9:33:01 Lab Result : BUN 16 mg/dl 9:33:01 Lab Result : eGFR NONAFRICAN 70.33329 ml/min 9:33:01 Lab Result : Hemoglobin 13.8 g/dl 9:33:01 Lab Result : Hematocrit 38.8 % 9:35:16 Patient received from Pre/Post Procedure Room to CCL 1 Alert and oriented. Tansferred to table in Supine position. 9:35:17 Warm blankets applied, and lizette hugger turned on for patient comfort. 9:35:18 Correct patient and procedure confirmed by team. 9:35:18 ECG and BP/O2 sat monitors applied to patient. 9:40:12 Vital chart was started 9:40:19 Full Disclosure recording started 9:40:29 H&P Date Dictated: 04/11/2019 Within 30 days and on chart., H&P Addendum completed by physician on day of procedure. (MUST COMPLETE FOR ALL OUTPATIENTS). 9:40:29 Pre-procedure instructions explained to patient. 9:40:30 Pre-op teaching completed and patient verbalized understanding. 9:40:31 Family in patients room. 9:40:32 Patient NPO since Midnight. 9:40:34 Is patient on blood thinner?No 9:40:36 Patient diabetic? No. 9:40:38 Is the patient allergic to Iodine/contrast media? No. 9:40:41 Previous problem with sedation/anesthesia? No ? 9:40:42 Snore? Yes 9:40:44 Sleep apnea? No 9:40:45 Deviated septum? No 9:40:46 Opens mouth fully? Yes 9:40:47 Sticks out tongue? Yes 9:40:49 Airway obstruction? No ? 9:40:53 Dentures? Yes OUT 9:40:57 Pre procedure: right dorsailis pedis pulse 2+ Normal; easily identifiable; not easily obliterated 9:40:59 Patient pain scale 0/10 ?. 9:41:05 IV patent on arrival in right antecubital with 0.9% NaCl at O. 9:41:09 Lab results completed and on chart. 9:41:12 Right groin area was prepped with chlora-prep and draped in sterile fashion 9:41:13 Alarms reviewed by R. N. 9:41:13 Sharps counted by scrub and verified by R.N. 9:41:17 Use device set Femoral Dx 9:41:18 ACIST Syringe (38876) opened to sterile field. 9:41:18 Bag Decanter (2002S) opened to sterile field. 9:41:19 ACIST Hand Control (97806) opened to sterile field. 9:41:20 ACIST Manifold (58928) opened to sterile field. 9:41:21 Tegaderm 4 x 4 (1626W) opened to sterile field. 9:41:23 Medline Cath Pack ([id number]) opened to sterile field. 9:41:24 DIAGNOSTIC Multipack 5Fr catheter set (IZ4325) opened to sterile field. 9:41:25 SHEATH 5FR [place] (LMP351) opened to sterile field. 9:41:26 EMERALD Guide Wire (570-642) opened to sterile field. 9:42:02 Baseline sample Acquired. 9:42:06 Rhythm: sinus rhythm 9:49:51 Oxygen 2 l/min etCO2 Nasal cannula was administered by Jae Florence RN; used for procedure; 9:49:58 Lidocaine 2% 20ml vial added to field was administered by Art Adams MD; for local anesthetic; 9:50:03 Heparin Flush Bag (1000units/500ml NS) 2 bags added to field was administered by Art Adams MD; used for procedure; 9:50:14 0.9% NaCl 100 ml/hr I.V. was administered by Jae Florence RN; Per physician; 9:53:43 Zero performed for pressure channel P1 10:26:34 Zero performed for pressure channel P1 10:39:15 --------ALL STOP TIME OUT------ 10:39:15 Final Timeout: patient, procedure, and site verified with staff and physician. All members of the team are in agreement. 10:39:18 Right groin site verified by team. 10:39:22 Fire Safety Assessment: A--An alcohol-based skin anteseptic being used preoperatively., C--Open oxygen or nitrous oxide is being used., D--An ESU, laser, or fiber-optic light is being used. 10:39:27 Physical assessment completed. ASA score P 2 - A patient with mild systemic disease as per Art Adams MD. 10:39:31 2) 60-89 Mildly reduced kidney function, and other findings (as for stage 1) point to kidney disease. 10:39:34 Maximum allowable contrast dose (3.7 X eGFR X 0.75)186 ml. 10:39:38 Sedation plan: IV Moderate Sedation Medication:Versed, Fentanyl 10:40:37 Procedure started. 10:40:41 Local anesthetic to right femoral artery with Lidocaine 2% by Art Adams MD.INITIAL ACCESS ONLY 10:40:47 Versed 2 mg I.V. was administered by Jae Florence RN; for sedation; 10:40:52 Fentanyl 100 mcg I.V. was administered by Jae Florence RN; for sedation; 10:41:35 A 5 Fr sheath was inserted into the Right Femoral artery 10:41:44 A MULTIPACK Pigtail 5 Fr catheter was advanced over the wire and used for Procedure. 10:42:03 LV gram done using MCKENZIE 10:42:08 Injector settings: Ml/sec: 10, Volume: 20, 10:42:25 EF : 50 % 10:42:26 Catheter removed. 10:42:31 A MULTIPACK JL 4.0 5Fr catheter was advanced over the wire and used for Procedure. 10:43:49 LCA angiography performed. 10:43:51 Catheter removed. 10:43:56 A MULTIPACK 3DRC 5Fr catheter was advanced over the wire and used for Procedure. 10:44:26 SHEATH 6FR [place] (JZV927) opened to sterile field. 10:44:26 INFLATOR Merit BasixCompak (HV4076) opened to sterile field. 10:44:27 [place] Verrata Plus pressure wire (65846G) opened to sterile field. 10:45:28 GUIDE 6FR HS I catheter (LA6HSI) opened to sterile field. 10:45:29 GUIDE 6FR XBLAD 3.5 catheter ([id number]) opened to sterile field. 10:45:38 Sheath upsized to a 6 Fr Short. 10:46:19 6 Fr HS 1 guide catheter was inserted over the wire 10:46:28 Heparin Bolus 4000 units I.V. was administered by Jae Florence RN; for anticoagulation; verified with dr adams 10:47:21 FFR/IFR wire advanced. 10:47:44 Integrilin (Bolus 2mg/ml) 7.3 ml I.V. was administered by Jae Florence RN; for antiplatelet therapy; wasted 2.7 ml of vial 10:47:51 Versed 2 mg I.V. was administered by Jae Florence RN; for sedation; 10:47:54 Fentanyl 100 mcg I.V. was administered by Jae Florence RN; for sedation; 10:47:57 Wire advanced across lesion. 10:48:37 mRCA lesion measured at .98 with IFR 10:48:48 Wire removed. 10:48:49 Guide catheter removed. 10:49:22 6 Fr XBLAD 3.5 guide catheter was inserted over the wire 10:50:43 FFR/IFR wire advanced. 10:51:02 Wire advanced across lesion. 10:51:09 mLAD lesion measured at .83 with IFR 10:53:52 CHOICE PT Extra Support 182cm wire ([id number]) opened to sterile field. 10:53:53 CHOICE ES 182 ADVANCED ACROSS LAD 10:54:26 Place stent Inflation Number: 2 A REZA RX 2.75 x 12 stent ([id number]) was prepped and advanced across the Mid LAD . The stent was deployed at 21 WILFRED for 0:00 (min:sec) . 10:56:26 Stent catheter was removed intact over wire. 10:56:30 Place stent Inflation Number: 1 A REZA RX 3.5 x 18 stent ([id number]) was prepped and advanced across the Mid LAD . The stent was deployed at 21 WILFRED for 0:10 (min:sec) . 10:56:33 Stent catheter was removed intact over wire. 10:56:48 WIRE REDIRECTED TO THE CIRC 10:59:16 Versed 1 mg I.V. was administered by Jae Florence RN; for sedation; 11:00:05 The REZA RX 3.0 x 15 stent ([id number]) was advanced then removed because of failure to cross lesion 11:00:10 Wire removed. 11:00:11 Guide catheter removed. 11:00:28 GUIDE 6FR XB 4.0 catheter ([id number]) opened to sterile field. 11:00:29 CHOICE PT Extra Support 182cm wire ([id number]) opened to sterile field. 11:00:37 6 Fr XB 4 guide catheter was inserted over the wire 11:01:10 CHOICE PT Extra Support 182cm wire ([id number]) opened to sterile field. 11:02:05 CHOICE ES #1 ADVANCED ACROSS CIRC 11:03:00 CHOICE ES #2 ADVANCED ACROSS CIRC 11:07:30 Inflate balloon Inflation number: 1 A EUPHORA 3.0 x 15 Balloon ([id number]) was prepped and advanced across the Mid CX , then inflated to 15 WILFRED for 0:00 (min:sec) . 11:07:44 Inflation number: 2 The EUPHORA 3.0 x 15 Balloon ([id number]) was reinflated across the Mid CX , to 15 WILFRED for 0:00 (min:sec) . 11:08:04 Inflation number: 3 The EUPHORA 3.0 x 15 Balloon ([id number]) was reinflated across the Mid CX , to 13 WILFRED for 0:00 (min:sec) . 11:08:33 Inflation number: 4 The EUPHORA 3.0 x 15 Balloon ([id number]) was reinflated across the Mid CX , to 17 WILFRED for 0:00 (min:sec) . 11:08:51 Inflation number: 5 The EUPHORA 3.0 x 15 Balloon ([id number]) was reinflated across the Mid CX , to 15 WILFRED for 0:00 (min:sec) . 11:09:42 Balloon removed over the wire. 11:11:13 WIRE #1 REMOVED 11:12:09 The INTEGRITY RX 3.0 x 12 stent ([id number]) was advanced then removed because of failure to cross lesion 11:12:18 Wire removed. 11:12:19 Guide catheter removed. 11:12:40 SHEATH 7FR [place] (MGE519) opened to sterile field. 11:12:54 Sheath upsized to a 7 Fr Short. 11:13:06 GRAPHIX 182cm guide wire ([id number]) opened to sterile field. 11:13:33 GUIDE 7FR EBU 4.0 catheter ([id number]) opened to sterile field. 11:13:40 7 Fr EBU 4 guide catheter was inserted over the wire 11:14:40 Heparin Bolus 3000 units I.V. was administered by Jae Florence RN; for anticoagulation; verified with dr adams 11:14:46 PT GRAPHIX wire advanced. 11:15:33 WIRED ADVANCED ACROSS CIRC 11:16:05 Versed 1 mg I.V. was administered by Jae Florence RN; for sedation; 11:18:18 GRAPHIX 182cm guide wire ([id number]) opened to sterile field. 11:18:34 GRAPHIX #2 ADVANCED A MARVEL WIRE 11:19:56 INTEGERITY ADVANCED. MARVEL WIRE PULLED 11:20:19 Place stent Inflation Number: 6 A INTEGRITY RX 3.0 x 12 stent ([id number]) was prepped and advanced across the Mid CX . The stent was deployed at 17 WILFRED for 0:00 (min:sec) . 11:21:18 Wire removed. 11:21:19 Guide catheter removed. 11:21:20 Stent catheter was removed intact over wire. 11:21:25 SHEATH 7FR [place] (MIR922) opened to sterile field. 11::33 Sheath removed intact; hemostasis achieved with Exoseal to the Right Femoral artery. 11::36 Procedure ended.(Physican Out) 11:23:02 Fluoroscopy time 13.20 minutes. 11:23:07 Flurop Dose total: 1334 11:23:07 Fluoroscopy dose: 1334 mGy 11:23:15 Dose Area Product 99851 mGy/cm. 11:23:19 Contrast amount:Isovue 300 160ml. 11:23:21 Maximum allowable dose exceeded? No. 11::22 Sharps counted by scrub and verified by R.N. 11::28 Post-op/insertion site Right Femoral artery dressed using a 4 x 4 and Tegaderm. 11:24:19 Plavix 600 mg P.O. was administered by Jae Florence RN; for antiplatelet therapy; 11:25:46 Post-procedure physical assessment completed. ASA score P 2 - A patient with mild systemic disease as per Art Adams MD. 11:25:49 Post procedure rhythm: sinus rhythm 11::51 Estimated blood loss: 10 ml 11:25:52 Post procedure instruction explained to patient.Patient verbalizes understanding. 11::53 Patient needs reinforcement of post procedure teaching. 11::23 Procedure type changed to Cath procedure, Diagnostic procedure, LHC, LHC w/Coronaries, FFR/IVUS, FFR Initial, FFR Additional, Sedation Charges, Moderate Sedation up to 15 minutes, PCI procedure, Coronary Stent, Coronary Stent Initial x2 11:27:50 Procedure and supply charges have been captured, reviewed, submitted and are correct. 11::53 Procedure Complication : No complications 11::55 Vital chart was stopped 11::55 See physician's report for complete and final results. 11::57 Report given to Pre/Post Procedure Room. 11:28:00 Patient transfered to Pre/Post Procedure Room with Bed. 11:28:01 Procedure ended. 11:28:01 Full Disclosure recording stopped 11:28:05 End room use (Document Last) Intervention Summary Intervention Notes Time ActionType Lesion and Equipment Used Action# Pressure Duration Attributes 10:54:26 Place stent Mid LAD REZA RX 2.75 x 2 21 00:00 12 stent ([id number]) 10:56:30 Place stent Mid LAD REZA RX 3.5 x 1 21 00:10 18 stent ([id number]) 11:00:05 Discard REZA RX 3.0 x Stent 15 stent ([id number]) 11:07:30 Inflate Mid CX EUPHORA 3.0 x 1 15 00:00 balloon 15 Balloon ([id number]) 11:07:44 Reinflate Mid CX EUPHORA 3.0 x 2 15 00:00 balloon 15 Balloon ([id number]) 11:08:04 Reinflate Mid CX EUPHORA 3.0 x 3 13 00:00 balloon 15 Balloon ([id number]) 11:08:33 Reinflate Mid CX EUPHORA 3.0 x 4 17 00:00 balloon 15 Balloon ([id number]) 11:08:51 Reinflate Mid CX EUPHORA 3.0 x 5 15 00:00 balloon 15 Balloon ([id number]) 11:12:09 Discard INTEGRITY RX Stent 3.0 x 12 stent ([id number]) 11:20:19 Place stent Mid CX INTEGRITY RX 6 17 00:00 3.0 x 12 stent ([id number]) Device Usage Item Name Manufacture Quantity Catalog Number Hospital Part Current Minimal Lot# / Charge Number Stock Stock Serial# Code ACIST Syringe Acist 1 [id number] 434288 421350 787177 20 (76005) Medical Systems Inc Bag Decanter Microtek 1 2001S 732526 25940 332121 5 (2001S) Medical Inc. ACIST Hand Acist 1 91607 396297 916835 230408 5 Control Medical (79114) Systems Inc ACIST Manifold Acist 1 13737 121950 713509 654073 5 (55452) Medical Systems Inc Tegaderm 4 x 4 3M 1 1626W 013084 153459 103751 5 (1626W) Medline Cath Medline 1 [id number] 990190 16724 155448 5 Pack ([id number]) DIAGNOSTIC Cardinal 1 EH4191 856264 48179 976719 30 Multipack 5Fr Health catheter set (WO9316) SHEATH 5FR Terumo 1 TGX817 308636 981165 837075 [address] [place] (GQW739) EMERALD Guide Cardinal 1 502-455 236686 433781 575138 5 Wire (502-455) Health MULTIPACK Cardinal 1 876523 5 Pigtail 5 Fr Health catheter MULTIPACK JL Cardinal 1 014736 5 4.0 5Fr Health catheter MULTIPACK 3DRC Cardinal 1 890419 5 5Fr catheter Health SHEATH 6FR Terumo 1 JKS975 768753 850038 421792 [address] [place] (FCM009) INFLATOR Merit Merit 1 NL5882 296980 776829 104490 15 BasixSan [facility] HospitalSimple Energy Medical (XB9981) [place] 1 [id number] 379457 101301828 772280 5 Verrata Plus pressure wire (76577N) GUIDE 6FR HS I Medtronic 1 LA6HSI 545877 08344 425052 1 catheter (LA6HSI) GUIDE 6FR Cardinal 1 [id number] 656595 807325 591606 10 XBLAD 3.5 Health catheter (72211099) CHOICE PT Odon 3 [id number] 034357 784183 665099 5 Extra Support Scientific 182cm wire ([id number]) REZA RX 2.75 x Medtronic 1 [id number] 775265 4118963 892958 5 [id number] 12 stent ([id number]) REZA RX 3.5 x Medtronic 1 [id number] 905552 6691054 099479 5 [id number] 18 stent ([id number]) REZA RX 3.0 x Medtronic 1 [id number] 970530 6420810 366991 5 [id number] 15 stent ([id number]) GUIDE 6FR XB Cardinal 1 [id number] 511279 506759 950262 2 4.0 catheter Health (05265317) EUPHORA 3.0 x Medtronic 1 [id number] 260005 283938 607122 5 [id number] 15 Balloon ([id number]) INTEGRITY RX Medtronic 1 [id number] 021066 412781 004540 5 [id number] 3.0 x 12 stent ([id number]) SHEATH 7FR Terumo 2 [id number] 464250 175755 745908 5 [place] (RWJ924) GRAPHIX 182cm Odon 2 [id number] 706340 265649 225402 5 guide wire Scientific ([id number]) GUIDE 7FR EBU Medtronic 1 [id number] 978481 246629 506183 0 4.0 catheter ([id number]) Signature Audit [place] Stage Time Signature Unsigned Intra-Procedure 04/26/2019 Monse Carroll 11:30:04 AM RT(R) Signatures Performing Physician : Art Signature : Angie MD Date : Time : Monitor : Monse Carroll RT Signature : Date : Time : Nurse : Jae Florence RN Signature : Date : Time : [address] [id number]
[2019-04-26 08:30] VITALS: BP 133/79; Ht 170.2 cm; Wt 82.7 kg
[2019-04-26 08:39] LABS: BASOPHILS 0.7 % (0-2); EOSINOPHILS 2.6 % (0-7); HEMATOCRIT 38.8 % (42.0-54.0); HEMOGLOBIN 13.8 g/dL (13.5-17.5); IMMATURE GRANULOCYTES 0.9 % (0-5); LYMPHOCYTES 26.6 % (15-50); MCH 32.4 pg (26.0-34.0); MCHC 35.6 g/dL (31.0-37.0); MCV 91.1 fL (80.0-100.0); MEAN PLATELET VOLUME 9.1 fL (7.4-10.4); MONOCYTES 9.7 % (2-11); NEUTROPHILS 59.5 % (40-80); PLATELET COUNT 213 10x3/uL (130-400); RBC 4.26 10x6/uL (4.20-6.10); RDW 13.3 % (11.5-14.5); WBC 5.5 10x3/uL (4.8-10.8)
[2019-04-26 08:57] LABS: ANION GAP 11.7 mmol/L (8-16); CARBON DIOXIDE 26.2 mmol/L (21.0-32.0); CHOL - HDL RATIO 4.1 ratio (2.3-4.9); CREATININE - SERUM 1.1 mg/dL (0.6-1.3); LDL-HDL RATIO 2.3 ratio (1.5-3.5); POTASSIUM - SERUM 3.9 mmol/L (3.5-5.1)
--- NOTE | 2019-04-26 11:40 | NUR ---
PT RECEIVED VIA STRETCHER FOR RECOVERY POST ANGIOGRAM. PT SLEEPING, VERBALLY AROUSABLE. FAMILY AT BEDSIDE. IV INFUSING VIA ORDERS. R GROIN W 7FR EXOCELE, DRESSING CDI NO BLEEDING OR HEMATOMA NOTED. LEG PINK AND WARM, PEDAL PULSES PALPABLE. O2 PLACED AT 2L/NC, SAT 96, HR NSR RATE 65, BP 140/77. CALL LIGHT IN REACH
[2019-04-26] MEDS ORDERED: PLAVIX75 MG PO (11:43)
--- NOTE | 2019-04-26 12:00 | NUR ---
PT SLEEPING COMFORTABLY, R GROIN SOFT, DRESSING CDI NO BLEEDING OR HEMATOMA NOTED. VSS. FAMILY REMAIN AT BEDSIDE. CALL LIGHT IN REACH
--- NOTE | 2019-04-26 12:45 | NUR ---
PT RESTING COMFORTABLY, VERBALLY AROUSABLE DENIES PAIN OR DISCOMFORT. R GROIN SOFT, NO BLEEDING OR SWELLING NOTED. HR 60, BP 140/78, 02 SAT 95 ON 2L/NC. IV INFUSING VIA ORDERS. FAMILY AT BEDSIDE, CALL LIGHT IN REACH
--- NOTE | 2019-04-26 13:15 | NUR ---
PT CONTINUES TO REST W EYES CLOSED. R GROIN SOFT, DRESSING REMAINS CDI NO BLEEDING OR HEMATOMA NTOED. LEG PINK AND WARM, PEDAL PULSES PALPABLE. VSS. CALL LIGHT IN REACH, FAMILY AT BEDSIDE. TOLERATING WATER W/O NAUSEA.
--- NOTE | 2019-04-26 13:45 | NUR ---
PT RESTING W EYES CLOSED, DENIES PAIN OR NAUSEA. R GROIN DRESSING REMAINS CDI NO BLEEDING OR HEMATOMA NOTED. LEG PINK AND WARM, PEDAL PULSES PALPABLE. FAMILY REMAINS AT BEDSIDE, CALL LIGHT IN REACH
--- NOTE | 2019-04-26 14:12 | NUR ---
PT AWAKE BUT STILL DROWSY, HR 62, BP 142/77, 02 SAT 94 ON 2L/NC. R GROIN DRESSING CDI, NO BLEEDING OR SWELLING NOTED. C/O SLIGHT PAIN IN R SHOULDER, STATES IT FEELS STIFF. CALL LIGHT IN REACH, DENIES NEEDS AT THIS TIME.
--- NOTE | 2019-04-26 14:29 | NUR ---
HOB ELEVATED 30 DEGREES, URINAL GIVEN. SANDWICH TRAY AND DRINK SERVED.
--- NOTE | 2019-04-26 14:58 | NUR ---
PT TRYING TO VOID IN URINAL. GROIN STILL SOFT, DRESSING CDI NO BLEEDING OR SWELLING NOTED. VSS. FAMILY AT BEDSIDE.
--- NOTE | 2019-04-26 15:15 | NUR ---
RIGHT GROIN DRESSING C/D/I. NO S/S OF HEMATOMA NOTED. PIV D/C'D WITH CATH TIP INTACT. PT TOLERATED WELL. PT INSTRUCTED TO GET DRESSED. FAMILY AT BEDSIDE TO ASSIST.
--- NOTE | 2019-04-26 15:16 | NUR ---
DISCUSSED DISCHARGE INSTRUCTIONS WITH PT AND PT'S FAMILY. THEY VOICED UNDERSTANDING.
--- NOTE | 2019-04-26 15:20 | NUR ---
PT AMBULATED TO RESTROOM. VOIDED WITHOUT DIFFICULTY. TAKEN OUT TO VEHICLE BY WHEELCHAIR. NO S/S OF DISTRESS NOTED. ALL BELONGINGS AND PAPERWORK IN HAND.
--- NOTE | 2019-04-30 11:09 | OP ---
PATIENT NAME: LAKSHMI BONILLA MEDICAL RECORD: [id number] :55 LOCATION:D.CAT ADMISSION DATE: SURGEON: JOSY LANDIS MD DATE OF OPERATION: 04/26/2019 PROCEDURES: 1. PTCA stent LAD. 2. PTCA stent left circumflex. 3. IFR left anterior descending. 4. IFR RCA. 5. Left heart catheterization. 6. Selective coronary angiography. 7. Left ventriculogram. INDICATION: Unstable angina, coronary artery disease, and abnormal nuclear stress test. DESCRIPTION OF PROCEDURE: After informed consent was obtained and after a detailed description of risks, benefits as well as alternative therapies, the patient elected to proceed with angiogram and angioplasty. The right femoral area was prepped and draped in normal sterile fashion. The right femoral artery was cannulated via modified Seldinger technique with placement of 7-South African sheath. All catheters exchanged through this sheath. FINDINGS: The left ventriculogram was performed in standard 30-degree MCKENZIE view reveals preserved cardiac wall motion, ejection fraction 50%. SELECTIVE CORONARY ANGIOGRAPHY: 1. Left main is with no significant angiographic disease. 2. Left anterior descending has previously placed stents with greater than 80% in-stent restenosis and IFR was abnormal at 0.83. 3. The left circumflex has 85+ percent stenosis in the mid vessel. This correlates with perfusion defect on nuclear stress test. 4. The right coronary has previously placed stents, these are widely patent. There is questionable area of stenosis distally; however, IFR was normal at 0.98. PTCA STENT OF THE LAD: Stents used were 2.75 x 12 and 3.5 x 18 both Gerard stents. Result was 0% residual stenosis. PTCA STENT OF THE LEFT CIRCUMFLEX: This is extremely heavily calcified and tortuous proximally. The Masterson stent would not pass. We were able to finally get an Integrity stent with a 7-South African system at a 3.0 x 12 in the mid circumflex. Result was 0% residual stenosis. OVERALL IMPRESSION: Successful percutaneous transluminal coronary angioplasty stent of the left anterior descending and circumflex, both going from 80% to 85% initial stenosis to 0% residual. TRANSINT:[id number] Voice Confirmation ID: [id number] DOCUMENT ID: [id number] OPERATIVE REPORT [id number] LAKSHMI BONILLA JEFFREY MD at 1108 CC: [id number] DICTATION DATE: 04/26/19 1126 BUYER AGENT: 04/26/19 1237 DEP CLI 04/26/19 [facility] [address] [place] [address]
== END 2019-04-26 15:20 | disposition home or self-care (01) ==
LOC: D.CATH 08:02
PROVIDERS: ATTEND Internal Medicine Interventional Cardiology
DX: I25.110 Atherosclerotic heart disease of native coronary artery with unstable angina pectoris (principal); R94.39 Abnormal result of other cardiovascular function study; T82.855A Stenosis of coronary artery stent, initial encounter; Z01.812 Encounter for preprocedural laboratory examination
CPT/HCPCS: 93458; C9600; 92928; 93571; 93572

== ENCOUNTER 2019-04-29 15:16 | Emergency (ER) | payer MEDICARE ==
[~2019-04-29] VITALS: Ht 170.2 cm; Wt 63.6 kg
[2019-04-29 15:43] LABS: BASOPHILS 0.5 % (0-2); EOSINOPHILS 2.4 % (0-7); HEMATOCRIT 39.8 % (42.0-54.0); HEMOGLOBIN 14.3 g/dL (13.5-17.5); IMMATURE GRANULOCYTES 0.6 % (0-5); LYMPHOCYTES 22.3 % (15-50); MCH 32.7 pg (26.0-34.0); MCHC 35.9 g/dL (31.0-37.0); MCV 91.1 fL (80.0-100.0); MEAN PLATELET VOLUME 9.1 fL (7.4-10.4); MONOCYTES 8.1 % (2-11); NEUTROPHILS 66.1 % (40-80); PLATELET COUNT 214 10x3/uL (130-400); RBC 4.37 10x6/uL (4.20-6.10); RDW 13.2 % (11.5-14.5); WBC 6.2 10x3/uL (4.8-10.8)
[2019-04-29 16:00] LABS: ALBUMIN 3.6 g/dL (3.4-5.0); ALKALINE PHOSPHATASE 41 U/L (46-116); ALT (SGPT) 24 U/L (10-68); CALC OSMOLALITY 281 mosm/kg (275-300); CALCIUM 9.1 mg/dL (8.5-10.1); CARBON DIOXIDE 28.3 mmol/L (21.0-32.0); CHLORIDE - SERUM 102 mmol/L (98-107); CREATININE - SERUM 1.1 mg/dL (0.6-1.3); GLUCOSE 142 mg/dL (74-106); POTASSIUM - SERUM 3.5 mmol/L (3.5-5.1); PROTEIN - SERUM 7.7 g/dL (6.4-8.2); SODIUM 139 mmol/L (136-145); UREA NITROGEN 17 mg/dL (7-18); eGFR NON AFRICAN AMERICAN 71 mL/min (90-120)
[2019-04-29 16:22] LABS: CKMB 0.9 U/L (0.0-3.6); CREATINE KINASE 38 UL (21-232); PRO BNP 153 pg/mL (0-125)
[2019-04-29 16:25] LABS: TROPONIN-I 0.217 ng/mL (0.000-0.060)
[2019-04-29 16:27] VITALS: Ht 170.2 cm; Wt 63.6 kg
[2019-04-29 17:14] VITALS: BP 109/79
--- NOTE | 2019-04-30 11:10 | CN ---
PATIENT NAME:LAKSHMI BONILLA MEDICAL RECORD: [id number] : 55 LOCATION:.ER ADMIT DATE: ACCOUNT: [id number] CONSULTING PHYSICIAN: JOSY LANDIS MD REFERRING PHYSICIAN: JONI CHAMORRO MD DATE OF CONSULTATION: 04/29/2019 Cardiology Consultation ADMITTING DIAGNOSES: 1. Atypical chest pain. 2. Coronary artery disease. 3. Recent 2-vessel percutaneous transluminal coronary angioplasty and stent. 4. Hypertension. 5. Hyperlipidemia. BRIEF HISTORY: Mr. Bonilla presented with unstable anginal symptomatology last week, underwent 2-vessel PTCA and stent of the LAD and left circumflex. He now presents with recurrent chest pain. The chest pain is extremely atypical. It lasts only seconds. It is a sharp stabbing pain, centered just under his left axillary area, it is nothing like that of his previous angina. His EKG is with no changes. His troponin is still mildly elevated, but he had a difficult PTCA stent, especially of the circumflex last week. PHYSICAL EXAMINATION: CONSTITUTIONAL/GENERAL APPEARANCE: Well nourished, well developed, appears stated age. EYES: Lids and conjunctivae noninjected. No discharge. No pallor. ENT: Lips within normal limit. No cyanosis. No pallor. NECK: Carotid arteries, bilateral normal upstroke. No bruits. No thrills. No jugular venous pressure or distention. CERVICAL LYMPH NODES: Nontender. Nonenlarged. THYROID: Not enlarged. No nodules. CARDIOVASCULAR: Precordial exam, nondisplaced. No heaves or pericardial thrills. Rate and rhythm, regular. Heart sounds, normal S1, normal S2. No S3, no gallop, no rub. Systolic murmur, not heard. Diastolic murmur, not heard. RESPIRATORY: Respiratory effort, unlabored. Normal curvature. No thoracic deformity. No chest wall tenderness. Percussion, resonant. Auscultation, clear. No wheezes, no rales, no rhonchi. ABDOMEN: Soft, nondistended, nontender. No abdominal pain, no vomiting and normal appetite. MUSCULOSKELETAL: No joint tenderness, normal gait, normal tone. SKIN: Warm and dry. OVERALL IMPRESSION: Extremely atypical chest pain, not compatible with angina, most likely musculoskeletal at this time, no other cardiac workup or treatment is necessary. TRANSINT:[id number] Voice Confirmation ID: [id number] DOCUMENT ID: [id number] CONSULT REPORT [id number] LAKSHMI BONILLA, JOSY ARVIZU at 1110 CC: [id number] DICTATION DATE: 04/29/191627 [employer] WORKER: 04/29/192109 DEP ER 04/29/19 [place] [id number] [place] [id number]
== END 2019-04-29 17:15 | disposition home or self-care (01) ==
LOC: D.ER 15:16
PROVIDERS: Emergency Medicine
DX: R07.89 Other chest pain (principal)

== ENCOUNTER → 2019-08-07 17:09 | Outpatient (CLI) | payer MEDICARE ==
[2019-04-29 16:27] VITALS: BMI 21.9
[2019-08-07 17:46] LABS: CHOL - HDL RATIO 4.4 ratio (2.3-4.9); LDL-HDL RATIO 2.6 ratio (1.5-3.5)
== END | disposition home or self-care (01) ==
LOC: D.LABREF 17:09
PROVIDERS: ATTEND Internal Medicine Interventional Cardiology
DX: I25.10 Atherosclerotic heart disease of native coronary artery without angina pectoris (principal); E78.5 Hyperlipidemia, unspecified

== ENCOUNTER → 2019-09-25 13:47 | Outpatient (CLI) | payer MEDICARE, MEDICAID ==
[2019-04-29 16:27] VITALS: BMI 21.9
[2019-09-25 14:28] LABS: CHOL - HDL RATIO 4.4 ratio (2.3-4.9); LDL-HDL RATIO 2.5 ratio (1.5-3.5)
== END | disposition home or self-care (01) ==
LOC: D.LABREF 13:47
PROVIDERS: ATTEND Internal Medicine Interventional Cardiology
DX: E78.5 Hyperlipidemia, unspecified (principal)

== ENCOUNTER → 2020-02-04 08:17 | Outpatient (CLI) | payer MEDICARE ==
[2019-04-29 16:27] VITALS: BMI 21.9
== END | disposition home or self-care (01) ==
LOC: D.HCCARDIO 08:17
PROVIDERS: ATTEND Internal Medicine Cardiovascular Disease
DX: I25.10 Atherosclerotic heart disease of native coronary artery without angina pectoris (principal)